=== PATIENT | male | born 1995 | race Caucasian/White ===

== ENCOUNTER 2023-08-14 20:44 | Emergency (ER) | payer SELFPAY ==
[2023-08-14 20:45] VITALS: BP 134/79; PULSE 106; RESP 18; TEMP 36.7; O2SAT 97; BMI 32.5
--- NOTE | 2023-08-14 20:50 | XRR_ITS ---
PROCEDURE INFORMATION: Exam: XR Chest Exam date and time: 08/14/2023 8:57 PM Age: 27 years old Clinical indication: Pain; Chest pressure; Additional info: Cp, cp and tachycardia TECHNIQUE: Imaging protocol: Radiologic exam of the chest. Views: 1 view. COMPARISON: No relevant prior studies available. FINDINGS: Lungs: Unremarkable. No consolidation. Pleural spaces: Unremarkable. No pleural effusion. No pneumothorax. Heart/Mediastinum: Unremarkable. No cardiomegaly. Bones/joints: Unremarkable. XR/XR chest 1V [id number] IMPRESSION: No acute findings.
--- NOTE | 2023-08-14 20:54 | ED_ITS ---
HPI - Chest Pain 2 General: Chief Complaint: Chest Pain Stated Complaint: CP Time Seen by Provider: 08/14/23 20:45 Source: patient Mode of arrival: EMS Limitations: no limitations History of Present Illness: Patient presents to the emergency department today brought by EMS for evaluation treatment of palpitations and rapid heart rate. Patient states he was video fredrick this evening when he started to feel palpitations. He reports he has a finger pulse ox at home that records heart rate and states his heart rate was in the 140s. He states that this has happened to him in the past but has never been evaluated. Patient denies shortness of breath. He denies being ill recently with any cough or congestion. He denies any significant past medical history. He states that back in November he had a neck/head injury for which she typically takes ibuprofen but no chronic medications. Patient states he had a cup of coffee today but does not drink energy drinks and does not typically have tea or coffee. He did have a dab of marijuana tonight but, states he has taken marijuana regularly in the past. Review of Systems 2 General: Reports: 10 or more systems reviewed and unremarkable except in HPI and below Physical Exam 2 Const: COMMON NORMALS: no acute distress, patient oriented x3 and alert O THER: Patient is pleasant, social. Answers his own history. Eye: COMMON NORMALS: Equal, round and reactive pupils present, EOMs intact bilaterally and conjunctivae normal CONJUNCTIVA: Yes conjunctivae normal P UPIL: Yes Equal, round and reactive pupils present Neck/C-Spine: COMMON NORMALS: no meningeal signs Lymph: LYMPHATIC: no lymphadenopathy noted Resp: COMMON NORMALS: normal respiratory effort, No retractions and No use of accessory muscles OTHER: No wheezing. No stridor. Cardio: COMMON NORMALS: regular rate and regular rhythm RATE: regular rate RHYTHM: regular rhythm : COMMON NORMALS: Yes no CVA tenderness BLADDER/KIDNEY EXAM: Yes no CVA tenderness Back/Pelvis: COMMON NORMALS: no CVA tenderness, thoracic and lumbar spine normal to inspection and thoraco-lumbar ROM normal Extremity: COMMON NORMALS: normal to inspection, full ROM and no pedal edema OTHER: Patient is ambulatory and weightbearing here in the emergency department. Able to get on and off of the EMS gurney and into the ER bed independently. Neuro: COMMON NORMALS: patient oriented x3 SENSORIUM/ORIENTATION: Yes alert MENINGEAL SIGNS: Yes no meningeal signs CRANIAL NERVES: Yes CN normal except as noted SPEECH: speech normal GAIT: Yes Normal gait present Psych: COMMON NORMALS: mental status grossly normal, Normal thought process present, cooperative, normal affect, speech normal and activity/motor behavior normal SPEECH: Yes normal speech THOUGHT PROCESS: Normal thought process present Skin: COMMON NORMALS: no rashes or lesions noted and turgor normal GENERAL SKIN EXAM: no rashes or lesions noted and turgor normal Course 2 Vital Signs: Vital signs: Vital Signs Temperature 98.0 F 08/14/23 20:45 Pulse Rate 81 08/15/23 00:12 Respiratory Rate 12 08/15/23 00:12 Blood Pressure 135/89 08/15/23 00:12 Pulse Oximetry 96 08/15/23 00:12 MDM - Chest Pain Medical Decision Making Patient presents emergency department today for evaluation treatment of concerns of palpitations, rapid heart rate, and some left-sided chest discomfort. Patient was found to have an elevated white blood cell count but, no other findings for infectious source were noted. Chest x-ray was clear. Urine without signs of infection. Patient's urine drug screen was positive for marijuana and benzos. Patient was not found to be dehydrated or have signs of electrolyte abnormality. Patient's troponins were unremarkable. However, patient was found to have a noticeably elevated TSH. However, would assume that would be related with more of a bradycardic type picture however, by the time patient was discharged, heart rate had come down into the 80s. Patient reports he does have a primary care doctor that he follows up with. We discussed the elevated TSH and recommended he have a follow-up for recheck of this finding. Also, patient mentions offhandedly that he gets recurrent headaches ever since having his head injury last year. Explained to him that treatment for traumatic headaches or migraines can often be different than treatments for acute headaches. Encouraged him to speak with his primary care doctor as he may require preventative medications or acute treatment medications for his headaches. Patient was given strict return precautions for cardiac issues or thunderclap headaches. Patient verbalizes understanding and agreement to treatment plan. Patient has an EKG in his chart indicating A-fib with RVR. While the patient's name and birthdate are correct, the timestamp and hardcopy EKG do not match. Hardcopy EKG I received shows patient in a sinus tachycardia. This also correlates with the EKG from EMS which showed a sinus tachycardic rhythm. Repeat EKG at discharge again shows a sinus tachycardia. Patient at no point on the monitor showed any form of A-fib or A-fib with RVR. Dr. Kay was notified of this discrepancy and he did review the 3 EKGs showing sinus tachycardia and agrees there shows no signs of A-fib or A-fib with RVR. Differential Diagnosis Unlikely acute massive pulmonary embolism, acute respiratory failure, acute myocardial infarction, cardiac arrest or sudden cardiac Lab Data 08/14/23 21:10 08/14/23 21:10 Radiology Impressions Chest X-Ray 08/14/23 20:50 IMPRESSION: No acute findings. Laboratory Results WBC 16.37 10^3/uL (3.29-11.43) H 08/14/23 21:10 RBC 4.75 10^6/uL (3.85-5.65) 08/14/23 21:10 Hgb 14.90 g/dL (11.27-16.99) 08/14/23 21:10 Hct 43.7 % (37-53) 08/14/23 21:10 MCV 92.0 fl (82-101) 08/14/23 21:10 MCH 31.4 pg (27-33) 08/14/23 21:10 MCHC 34.1 g/dL (30-55) 08/14/23 21:10 RDW 12.3 % (12.1-15.1) 08/14/23 21:10 Plt Count 376 10^3/cmm (157-399) 08/14/23 21:10 MPV 9.2 fL (7.4-10.4) 08/14/23 21:10 Neut % (Auto) 74.6 % 08/14/23 21:10 Lymph % (Auto) 14.1 % 08/14/23 21:10 [place] % (Auto) 8.8 % 08/14/23 21:10 Eos % (Auto) 1.3 % 08/14/23 21:10 Baso % (Auto) 0.8 % 08/14/23 21:10 Neut # (Auto) 12.22 10^3/uL (1.8-7.7) H 08/14/23 21:10 Lymph # (Auto) 2.3 10^3/uL (0.8-4.8) 08/14/23 21:10 [place] # (Auto) 1.4 10^3/uL (0.2-0.9) H 08/14/23 21:10 Eos # (Auto) 0.2 10^3/uL (0.0-0.8) 08/14/23 21:10 Baso # (Auto) 0.1 10^3/uL (0.0-0.1) 08/14/23 21:10 Nucleated RBC % (auto) 0 % 08/14/23 21:10 Nucleated RBCs # 0.0 /100WBC 08/14/23 21:10 Sodium 138 mmol/L (136-145) 08/14/23 21:10 Potassium 4.1 mmol/L (3.5-5.1) 08/14/23 21:10 Chloride 101 mmol/L (98-107) 08/14/23 21:10 Carbon Dioxide 23 mmol/L (22-29) 08/14/23 21:10 Anion Gap 18.1 (5-19) 08/14/23 21:10 BUN 16 mg/dL (6-20) 08/14/23 21:10 Creatinine 1.0 mg/dL (0.7-1.2) 08/14/23 21:10 GFR Calculation 90.3 mL/min (90-130) 08/14/23 21:10 Glucose 108 mg/dL (65-115) 08/14/23 21:10 Calculated Osmolality 288 mOsm/kg (285-295) 08/14/23 21:10 Calcium 10.9 mg/dL (8.5-10.5) H 08/14/23 21:10 Total Bilirubin 0.3 mg/dL (0.15-1.2) 08/14/23 21:10 AST 24 U/L (0-40) 08/14/23 21:10 ALT 38 U/L (0-41) 08/14/23 21:10 Alkaline Phosphatase 49 U/L (40-130) 08/14/23 21:10 Troponin T Baseline 8 ng/L (0-15) 08/14/23 21:10 Troponin T 120 Minute 7.66 ng/L (0-15) 08/14/23 23:15 Delta Troponin T -0.34 ABS# (0-10) L 08/14/23 23:15 Total Protein 7.3 g/dL (6.6-8.7) 08/14/23 21:10 Albumin 4.8 g/dL (3.5-5.2) 08/14/23 21:10 Globulin 2.5 g/dL (1.3-4.6) 08/14/23 21:10 TSH 14.84 uIU/mL (0.27-4.20) H 08/14/23 21:10 Urine Color Light yellow (Yellow) 08/14/23 22:17 Urine Appearance Clear (CLEAR) 08/14/23 22:17 Urine pH 7 (5-7) 08/14/23 22:17 Ur Specific [place] 1.010 (1.005-1.030) 08/14/23 22:17 Urine Protein Neg (Negative) 08/14/23 22:17 Urine Glucose (UA) Norm (Normal) 08/14/23 22:17 Urine Ketones Negative (Negative) 08/14/23 22:17 Urine Blood Trace (Negative) H 08/14/23 22:17 Urine Nitrate Negative (Negative) 08/14/23 22:17 Urine Bilirubin Neg (Negative) 08/14/23 22:17 Urine Urobilinogen Neg mg/dL (Negative) 08/14/23 22:17 Ur Leukocyte Esterase Negative (Negative) 08/14/23 22:17 Urine RBC 0-4 /hpf (0-2) H 08/14/23 22:17 Urine WBC None /hpf (0-5) 08/14/23 22:17 Ur Squamous Epith Cells None /hpf (0-5) 08/14/23 22:17 Amorphous Sediment Not Reportable 08/14/23 22:17 Urine Bacteria None /hpf (NONE) 08/14/23 22:17 Urine Opiates Screen Negative ng/mL (Negative) 08/14/23 22:17 Ur Barbiturates Screen Negative ng/mL (Negative) 08/14/23 22:17 Ur Phencyclidine Scrn Negative ng/mL (Negative) 08/14/23 22:17 Ur Amphetamines Screen Negative ng/mL (Negative) 08/14/23 22:17 U Benzodiazepines Scrn Positive ng/mL (Negative) H 08/14/23 22:17 Urine Cocaine Screen Negative ng/mL (Negative) 08/14/23 22:17 U Marijuana (THC) Screen Positive ng/mL (Negative) H 08/14/23 22:17 All radiology interpretation(s) finalized by discharge Discharge Plan Discharge Patient Disposition: Home Clinical Impression: Sinus tachycardia, Elevated TSH Condition: Stable Discharge Orders: Discharge ED (Routine); Ordered 08/14/23 Ordered By: Renetta Owens Discharge Diet: Usual diet Discharge Activity: Increase activity as tolerated Patient Instructions: Hypothyroidism (ED), Tachycardia (ED) Activity Restrictions/Additional Instructions: Evaluation today did show a fast heart rate however, you are within a sinus rhythm indicating that the electrical impulses are still moving through your heart appropriately. The test to evaluate for any signs of heart damage are negative today. Your lab work is generally unremarkable for concerns of electrolyte abnormality or dehydration however, your thyroid test shows your thyroid levels are significantly elevated. This often indicates a condition called hypothyroidism. However, most times, hypothyroidism is associated with a slower heart rate. Either way, I do recommend you follow-up with your primary care doctor to discuss as you may require some intervention to regulate your thyroid levels. Also, it is worth talking to your primary care doctor about your headaches as posttraumatic headaches often require treatment with stronger medications than Tylenol and ibuprofen. If you develop chest pains with shortness of breath, passing out, or if you develop the worst headache you have ever had in your entire life need to return to the emergency department. Coding Level of Care Code ED Food Counter Attendant for Sofya Nielsen
--- NOTE | 2023-08-14 20:56 | ECG_ITS ---
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 Measurements Intervals [place] Rate: 109 P: 0 [place]: 0 QRS: 6 QRSD: 78 T: 55 QT: 305 QTc: 412 Interpretive Statements SINUS TAHCYCARDIA NONSPECIFIC T-WAVE ABNORMALITY No previous ECG available for comparison Electronically Signed On 08-15-2023 18:32:49 ENVIRONMENTAL STUDIES DEPARTMENT CHAIR by Kelton Nieves M.D. [email or web address] [email or web address]/[id number] f
[2023-08-14 21:16] LABS: Basophils # 0.1 10^3/uL (0.0-0.1); Basophils % 0.8 %; Eosinophils # 0.2 10^3/uL (0.0-0.8); Eosinophils % 1.3 %; Hematocrit 43.7 % (37-53); Lymphocytes # 2.3 10^3/uL (0.8-4.8); Lymphocytes % 14.1 %; Mean Corpuscular HGB Conc 34.1 g/dL (30-55); Mean Corpuscular Hemoglobin 31.4 pg (27-33); Mean Platelet Volume 9.2 fL (7.4-10.4); Monocytes # 1.4 10^3/uL (0.2-0.9); Monocytes % 8.8 %; Neutrophils # 12.22 10^3/uL (1.8-7.7); Neutrophils % 74.6 %; Nucleated Red Blood Cells % 0 %; Platelet Count 376 10^3/cmm (157-399); Red Blood Count 4.75 10^6/uL (3.85-5.65); Red Cell Distribution Width 12.3 % (12.1-15.1); White Blood Count 16.37 10^3/uL (3.29-11.43)
[2023-08-14 21:47] LABS: Troponin(5th) Baseline 8 ng/L (0-15)
[2023-08-14 21:57] LABS: Alanine Aminotransferase 38 U/L (0-41); Albumin Level 4.8 g/dL (3.5-5.2); Alkaline Phosphatase 49 U/L (40-130); Aspartate Amino Transferase 24 U/L (0-40); Blood Urea Nitrogen 16 mg/dL (6-20); Calcium 10.9 mg/dL (8.5-10.5); Carbon Dioxide 23 mmol/L (22-29); Chloride 101 mmol/L (98-107); Globulin 2.5 g/dL (1.3-4.6); Glomerular Filtration Rate 90.3 mL/min (90-130); Glucose 108 mg/dL (65-115); Osmolality Calculated 288 mOsm/kg (285-295); Sodium 138 mmol/L (136-145); Thyroid Stimulating Hormone 14.84 uIU/mL (0.27-4.20); Total Bilirubin 0.3 mg/dL (0.15-1.2); Total Protein 7.3 g/dL (6.6-8.7)
[2023-08-14 21:58] LABS: Anion Gap 18.1 (5-19); Potassium 4.1 mmol/L (3.5-5.1)
[2023-08-14 22:28] LABS: Add Urine Culture? No; Add Urine Microscopic? YES; Bilirubin Urine Neg (Negative); Blood Urine Trace (Negative); Glucose Urine UA Norm (Normal); Ketones Urine Negative (Negative); Leukocyte Esterase Urine Negative (Negative); Nitrate Urine Negative (Negative); Protein Urine Neg (Negative); RBC Urine 0-4 /hpf (0-2); Urine Appearance Clear (CLEAR); Urine Color Light yellow (Yellow); Urobilinogen Urine Neg (Negative); pH Urine 7 (5-7)
[2023-08-14 22:30] LABS: Amphetamines Screen Urine Negative (Negative); Barbiturates Screen Urine Negative (Negative); Benzodiazepines Screen Urine Positive (Negative); Cocaine Screen Urine Negative (Negative); Opiate Screen Urine Negative (Negative); PCP Screen Urine Negative (Negative); THC Screen Urine Positive (Negative)
--- NOTE | 2023-08-14 23:03 | ECG_ITS ---
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 Measurements Intervals [place] Rate: 84 P: 53 [place]: 149 QRS: 4 QRSD: 84 T: 43 QT: 327 QTc: 387 Interpretive Statements SINUS RHYTHM WITH SINUS ARRHYTHMIA NONSPECIFIC ST & T-WAVE ABNORMALITY Compared to ECG 08/14/2023 20:56:02 Atrial fibrillation no longer present T-wave abnormality still present Electronically Signed On 08-15-2023 18:34:33 CUPBOARD BUILDER by Kelton Nieves M.D. [id number]
[2023-08-14 23:38] LABS: Troponin 5 2HR 7.66 ng/L (0-15)
[2023-08-14 23:41] LABS: Troponin 5 2HR Delta -0.34 ABS# (0-10)
[2023-08-15 00:12] VITALS: BP 135/89; PULSE 81; RESP 12; O2SAT 96
== END 2023-08-15 00:16 | disposition home or self-care (01) ==
PROVIDERS: Emergency Provider Physician Assistant
DX: R00.0 Tachycardia, unspecified (principal); R94.6 Abnormal results of thyroid function studies
CPT/HCPCS: 36415; 71045; 80053; 80306; 81001; 84443; 84484; 85025; 93005; 99285